=== PATIENT | female | born 1950 | race Caucasian/White ===

== ENCOUNTER → 2016-08-11 | Outpatient (CLI) | payer MEDICARE, BC ==
[~2016-08-11] MED LIST: ASPIRIN 81M81 MG/TA2 PO; BENICAR HCT 12.1 TAB PO; LEVAQUIN 750MG750 M1 PO; LEVEMIR100 U/ML SQ; LIPITOR 10MG10 MG PO; NORCO 325 MG-7.1 TAB PO; NOVOLOG FLEX100 U/ML SQ; SENOKOT8.6 MG PO; ULTRAM 50MG TAB50 MG PO
== END ==
LOC: COL.VAS 13:15
DX: I51.89 Other ill-defined heart diseases (principal)

== ENCOUNTER → 2016-08-25 | Outpatient (CLI) | payer MEDICARE, BC ==
[2016-08-25 10:10] LABS: ADJUSTED CALCIUM 9.1 mg/dL (8.4-10.2); ALANINE AMINOTRANSFERASE 24 U/L (9-52); ALBUMIN 4.4 gm/dL (3.5-5.0); ALKALINE PHOSPHATASE 84 U/L (50-136); ANION GAP 15 mmol/L (7-16); BILIRUBIN,TOTAL 0.8 mg/dL (0.0-1.0); BLOOD UREA NITROGEN 44 mg/dL (7-17); CALCIUM 9.4 mg/dL (8.4-10.2); CARBON DIOXIDE 22 mmol/L (22-30); CHLORIDE 98 mmol/L (98-107); CREATININE, serum 1.02 mg/dL (0.52-1.25); GLUCOSE 93 mg/dL (74-106); POTASSIUM 3.8 mmol/L (3.4-5.0); SODIUM 135 mmol/L (137-145); TOTAL PROTEIN 7.9 gm/dL (6.4-8.2)
[2016-08-25 10:13] LABS: C-REACTIVE PROTEIN < 0.5 mg/dL (0.0-0.9)
== END ==
LOC: COL.LAB 09:00
PROVIDERS: Family Medicine
DX: E11.9 Type 2 diabetes mellitus without complications (principal); R73.9 Hyperglycemia, unspecified; R53.1 Weakness

== ENCOUNTER → 2016-08-26 | Outpatient (CLI) | payer MEDICARE, BC | LOC: COL.RAD 13:30 | DX: R10.11 Right upper quadrant pain (principal) ==

== ENCOUNTER → 2016-09-18 | Outpatient (CLI) | payer MEDICARE, BC | LOC: COL.RAD 14:14 | DX: R10.32 Left lower quadrant pain (principal); D48.7 Neoplasm of uncertain behavior of other specified sites; Z90.710 Acquired absence of both cervix and uterus ==

== ENCOUNTER → 2016-09-24 | Outpatient (CLI) | payer MEDICARE, BC | LOC: MC.RAD 13:20 | DX: Z12.31 Encounter for screening mammogram for malignant neoplasm of breast (principal) ==

== ENCOUNTER 2016-10-10 10:43 | Emergency (ER) | payer MEDICARE, BC ==
[~2016-10-10] VITALS: Ht 152.4 cm; Wt 72.7 kg
[2016-10-10 10:46] VITALS: TEMP 98.1
[2016-10-10] MEDS ORDERED: LIPITOR 10MG10 MG PO (10:59)
[2016-10-10] MEDS ORDERED: BENICAR HCT 12.1 TAB PO (10:59)
[2016-10-10] MEDS ORDERED: ASPIRIN 81M81 MG/TA2 PO (10:59)
[2016-10-10] MEDS ORDERED: LEVEMIR100 U/ML SQ (11:00)
[2016-10-10] MEDS ORDERED: NOVOLOG FLEX100 U/ML SQ (11:01)
[2016-10-10] MEDS ORDERED: NORCO 325 MG-7.1 TAB PO (11:02)
[2016-10-10] MEDS ORDERED: SENOKOT8.6 MG PO (11:02)
[2016-10-10 11:35] LABS: BASO % 0.5 % (0.0-2.0); EOS # 0.5 (0.0-0.7); EOS % 5.8 % (0-4.0); GRAN # 4.9 (1.4-6.5); GRAN % 58.3 % (42.2-75.2); HEMATOCRIT 37.1 % (37.0-47.0); HEMOGLOBIN 12.3 g/dl (12.5-16.0); LYMPH % 24.3 % (20.0-51.0); MEAN CELL VOLUME 85 fl (80.0-100.0); MEAN CORPUSCULAR HEMOGLOBIN 28 pg (27.0-31.0); MEAN CORPUSCULAR HGB CONC 33 g/dl (33.0-37.0); MEAN PLATELET VOLUME 10.4 fl (7.4-10.4); MONO # 0.9 (0.1-0.6); MONO % 10.5 % (1.7-9.3); PLATELET COUNT 334 K/mm3 (130-400); RED BLOOD COUNT 4.39 M/mm3 (4.10-5.30); REDCELL DISTRIBUTION WIDTH-CV 14.7 % (11.5-14.5); WHITE BLOOD COUNT 8.3 K/mm3 (4.8-10.8)
[2016-10-10 11:41] LABS: PH 5 (5-8); SQUAMOUS EPITHELIAL 20-50 /hpf; URINE APPEARANCE Cloudy; URINE BACTERIA None Seen /hpf; URINE BILIRUBIN Negative (NEGATIVE); URINE BLOOD Negative (NEGATIVE); URINE COLOR Yellow; URINE GLUCOSE 1+ (NEGATIVE); URINE KETONE Negative (NEGATIVE); URINE UROBILINOGEN Negative (NEGATIVE)
[2016-10-10 11:43] LABS: URINE WBC 20-50 /hpf
[2016-10-10 12:10] LABS: CALCIUM 9.7 mg/dL (8.4-10.2); POTASSIUM 4.2 mmol/L (3.4-5.0)
[2016-10-10 12:39] LABS: PH 5 (5-8); URINE APPEARANCE Clear; URINE BACTERIA None Seen /hpf; URINE BILIRUBIN Negative (NEGATIVE); URINE BLOOD Negative (NEGATIVE); URINE COLOR Yellow; URINE GLUCOSE 1+ (NEGATIVE); URINE KETONE Negative (NEGATIVE); URINE RBC 0-2 /hpf; URINE UROBILINOGEN Negative (NEGATIVE)
[2016-10-10] MEDS ORDERED: LEVAQUIN 750MG750 M1 PO (12:58)
[2016-10-10] MEDS ORDERED: ULTRAM 50MG TAB50 MG PO (12:58)
[2016-10-10 13:21] VITALS: BP 133/76; PULSE 73
== END 2016-10-10 13:26 | disposition home or self-care (01) ==
LOC: COL.ER 10:43
PROVIDERS: Emergency Medicine
DX: R10.31 Right lower quadrant pain (principal); R10.2 Pelvic and perineal pain; E11.9 Type 2 diabetes mellitus without complications; I10 Essential (primary) hypertension; Z98.890 Other specified postprocedural states
CPT/HCPCS: J1170; J1815; J7030; Q9967

== ENCOUNTER 2017-05-25 17:47 | Emergency (ER) | payer MEDICARE, BC ==
[~2017-05-25] VITALS: Ht 152.4 cm; Wt 70.0 kg
[2017-05-25 17:48] VITALS: TEMP 99.1
[2017-05-25] MEDS ORDERED: BUMEX 1MG TA1 MG/TA1 PO (18:07)
[2017-05-25] MEDS ORDERED: COLACE 100100 MG/CAP PO (18:08)
[2017-05-25] MEDS ORDERED: K-DUR20 MEQ PO (18:09)
[2017-05-25] MEDS ORDERED: MAG-OX 400400 MG/TAB PO (18:10)
[2017-05-25] MEDS ORDERED: LEVEMIR FLEX100 U/ML SQ (18:10)
[2017-05-25] MEDS ORDERED: LOPRESSOR 225 MG/TAB PO (18:11)
[2017-05-25] MEDS ORDERED: LEADER CLE17 GM/Dose PO (18:12)
[2017-05-25] MEDS ORDERED: MULTIPLE VITAMI1 CAP PO (18:14)
[2017-05-25] MEDS ORDERED: NOVOLOG FLEX100 U/ML SQ (18:15)
[2017-05-25 18:41] LABS: BILIRUBIN,TOTAL 0.5 mg/dL (0.0-1.0); CALCIUM 9.7 mg/dL (8.4-10.2); CREATININE, serum 0.94 mg/dL (0.52-1.25); INR 1.3 (0.8-3.0); POTASSIUM 4.8 mmol/L (3.4-5.0); PROTHROMBIN TIME 15.2 SECONDS (9.7-12.8)
[2017-05-25 18:54] LABS: TROPONIN-I 0.079 ng/mL (0.000-0.034)
[2017-05-25 20:50] LABS: BASO % 0.2 % (0.0-2.0); EOS # 0.3 (0.0-0.7); GRAN # 10.3 (1.4-6.5); GRAN % 75.3 % (42.2-75.2); HEMATOCRIT 33.7 % (37.0-47.0); HEMOGLOBIN 11.1 g/dl (12.5-16.0); LYMPH # 1.9 (1.2-3.4); LYMPH % 13.9 % (20.0-51.0); MEAN CELL VOLUME 86 fl (80.0-100.0); MEAN CORPUSCULAR HEMOGLOBIN 28 pg (27.0-31.0); MEAN CORPUSCULAR HGB CONC 33 g/dl (33.0-37.0); MEAN PLATELET VOLUME 11.4 fl (7.4-10.4); MONO % 7.5 % (1.7-9.3); PLATELET COUNT 44 K/mm3 (130-400); REDCELL DISTRIBUTION WIDTH-CV 15.5 % (11.5-14.5)
[2017-05-25 23:39] VITALS: BP 125/76; PULSE 94
== END 2017-05-26 00:30 | disposition short-term general hospital (02) ==
LOC: COL.ER 17:47
PROVIDERS: Emergency Medicine
DX: I26.99 Other pulmonary embolism without acute cor pulmonale (principal); D69.6 Thrombocytopenia, unspecified; I25.10 Atherosclerotic heart disease of native coronary artery without angina pectoris; E11.9 Type 2 diabetes mellitus without complications; I10 Essential (primary) hypertension; E78.5 Hyperlipidemia, unspecified; Z95.5 Presence of coronary angioplasty implant and graft; Z95.0 Presence of cardiac pacemaker; Z79.82 Long term (current) use of aspirin; Z79.4 Long term (current) use of insulin
CPT/HCPCS: J1650; J7050; Q9967

== ENCOUNTER → 2017-06-07 | Outpatient (CLI) | payer MEDICARE, BC ==
[~2017-06-07] MED LIST changes: +BUMEX 1MG TA1 MG/TA1 PO; +COLACE 100100 MG/CAP PO; +K-DUR20 MEQ PO; +LEADER CLE17 GM/Dose PO; +LEVEMIR FLEX100 U/ML SQ; +LOPRESSOR 225 MG/TAB PO; +MAG-OX 400400 MG/TAB PO; +MULTIPLE VITAMI1 CAP PO
[2017-06-07 14:53] LABS: MEAN CELL VOLUME 87 fl (80.0-100.0); MEAN CORPUSCULAR HGB CONC 32 g/dl (33.0-37.0); MEAN PLATELET VOLUME 11.7 fl (7.4-10.4); PLATELET COUNT 213 K/mm3 (130-400); RED BLOOD COUNT 3.55 M/mm3 (4.10-5.30); REDCELL DISTRIBUTION WIDTH-CV 15.5 % (11.5-14.5)
[2017-06-07 14:55] LABS: HEMATOCRIT 30.9 % (37.0-47.0); HEMOGLOBIN 9.8 g/dl (12.5-16.0); MEAN CORPUSCULAR HEMOGLOBIN 28 pg (27.0-31.0)
== END ==
LOC: ZCOL.LAB 14:39
DX: I26.99 Other pulmonary embolism without acute cor pulmonale (principal); D75.82 Heparin induced thrombocytopenia (HIT)

== ENCOUNTER 2017-11-08 15:14 | Outpatient (RCR) | payer MEDICARE, BC | END 2017-11-10 11:32 | disposition home or self-care (01) | LOC: COL.CR 15:14 | DX: Z48.812 Encounter for surgical aftercare following surgery on the circulatory system (principal); Z95.1 Presence of aortocoronary bypass graft; I25.10 Atherosclerotic heart disease of native coronary artery without angina pectoris ==

== ENCOUNTER → 2018-04-27 | Outpatient (CLI) | payer MEDICARE, BC | LOC: MC.RAD 03-14 07:20 | DX: Z12.31 Encounter for screening mammogram for malignant neoplasm of breast (principal) ==

== ENCOUNTER → 2019-05-26 | Outpatient (CLI) | payer MEDICARE, BC | LOC: MC.RAD 05-17 13:00 | DX: Z12.31 Encounter for screening mammogram for malignant neoplasm of breast (principal) ==

== ENCOUNTER → 2020-06-13 | Outpatient (CLI) | payer MEDICARE, BC | LOC: MC.RAD 11:15 | DX: Z12.31 Encounter for screening mammogram for malignant neoplasm of breast (principal); N63.20 Unspecified lump in the left breast, unspecified quadrant ==

== ENCOUNTER → 2020-06-21 | Outpatient (CLI) | payer MEDICARE, BC | LOC: MC.RAD | DX: N60.02 Solitary cyst of left breast (principal) ==

== ENCOUNTER → 2021-07-03 | Outpatient (CLI) | payer MEDICARE, BC | LOC: MC.RAD 06-27 09:30 | DX: Z12.31 Encounter for screening mammogram for malignant neoplasm of breast (principal) ==

== ENCOUNTER → 2023-08-31 | Outpatient (CLI) | payer MEDICARE, BC | LOC: MC.RAD 11:12 | DX: Z12.31 Encounter for screening mammogram for malignant neoplasm of breast (principal) ==